=== PATIENT | female | born 1950 | race Two or more races ===

== ENCOUNTER 2017-08-13 09:58 | Outpatient (CLI) | payer OTHER ==
[~2017-08-13 09:58] MED LIST: KETO10TA2 PO; LEVOXYL25 MCG; ORPH100T PO; PROTONIX40 MG PO; SIMVASTATIN5 MG; TIZANIDINE HCL2 MG PO; VASOTEC5 MG
== END 2017-08-13 10:14 | disposition home or self-care (01) ==
LOC: LAB 09:58
DX: D50.0 Iron deficiency anemia secondary to blood loss (chronic) (principal); E11.65 Type 2 diabetes mellitus with hyperglycemia; Z12.11 Encounter for screening for malignant neoplasm of colon; K62.5 Hemorrhage of anus and rectum; R10.9 Unspecified abdominal pain; E78.00 Pure hypercholesterolemia, unspecified; E03.0 Congenital hypothyroidism with diffuse goiter; N39.0 Urinary tract infection, site not specified; E55.9 Vitamin D deficiency, unspecified; M81.0 Age-related osteoporosis without current pathological fracture; E11.29 Type 2 diabetes mellitus with other diabetic kidney complication; N18.2 Chronic kidney disease, stage 2 (mild); I10 Essential (primary) hypertension

== ENCOUNTER → 2017-11-25 | Outpatient (CLI) | payer OTHER | END | disposition home or self-care (01) | LOC: NUCLEAR 10:54 | DX: I11.9 Hypertensive heart disease without heart failure (principal); I49.1 Atrial premature depolarization ==

== ENCOUNTER → 2018-04-06 07:42 | Outpatient (CLI) | payer OTHER | END | disposition home or self-care (01) | LOC: LAB 07:42 | DX: N18.2 Chronic kidney disease, stage 2 (mild) (principal); I10 Essential (primary) hypertension; E11.21 Type 2 diabetes mellitus with diabetic nephropathy; D50.0 Iron deficiency anemia secondary to blood loss (chronic); E78.2 Mixed hyperlipidemia; E03.0 Congenital hypothyroidism with diffuse goiter; N39.0 Urinary tract infection, site not specified ==

== ENCOUNTER → 2018-04-28 09:55 | Outpatient (CLI) | payer OTHER | END | disposition home or self-care (01) | LOC: LAB 09:55 | DX: D70.8 Other neutropenia (principal); E03.8 Other specified hypothyroidism; C90.00 Multiple myeloma not having achieved remission; M32.8 Other forms of systemic lupus erythematosus; D89.89 Other specified disorders involving the immune mechanism, not elsewhere classified; M06.80 Other specified rheumatoid arthritis, unspecified site ==

== ENCOUNTER 2018-05-20 08:42 | Outpatient (CLI) | payer OTHER | END 2018-05-20 08:50 | disposition home or self-care (01) | LOC: LAB 08:42 | DX: N18.2 Chronic kidney disease, stage 2 (mild) (principal); I10 Essential (primary) hypertension; E11.21 Type 2 diabetes mellitus with diabetic nephropathy ==

== ENCOUNTER 2018-07-29 07:57 | Outpatient (CLI) | payer OTHER | END 2018-07-29 09:10 | disposition home or self-care (01) | LOC: LAB 07:57 | DX: D70.8 Other neutropenia (principal); D78.21 Postprocedural hemorrhage of the spleen following a procedure on the spleen; E06.3 Autoimmune thyroiditis ==

== ENCOUNTER 2018-08-16 09:15 | Outpatient (CLI) | payer OTHER | END 2018-08-16 09:23 | disposition home or self-care (01) | LOC: LAB 09:15 | DX: D50.0 Iron deficiency anemia secondary to blood loss (chronic) (principal); E11.69 Type 2 diabetes mellitus with other specified complication; E78.00 Pure hypercholesterolemia, unspecified; E03.8 Other specified hypothyroidism; N39.0 Urinary tract infection, site not specified; Z12.11 Encounter for screening for malignant neoplasm of colon; K62.5 Hemorrhage of anus and rectum; R10.9 Unspecified abdominal pain; E55.9 Vitamin D deficiency, unspecified; E51.8 Other manifestations of thiamine deficiency ==

== ENCOUNTER 2018-10-02 09:22 | Emergency (ER) | payer OTHER ==
[~2018-10-02] VITALS: Ht 154.9 cm; Wt 60.8 kg
[2018-10-02] MEDS ORDERED: COZAAR50 MG PO (09:49)
[2018-10-04] MEDS ORDERED: ZETIA10 MG PO (07:54)
[2018-10-04] MEDS ORDERED: MULTIPLE VITAM1 EACH PO (07:54)
== END 2018-10-02 11:28 | disposition home or self-care (01) ==
LOC: ER 09:22
DX: S82.092A Other fracture of left patella, initial encounter for closed fracture (principal); W18.09XA Striking against other object with subsequent fall, initial encounter; Y93.89 Activity, other specified; Y92.098 Other place in other non-institutional residence as the place of occurrence of the external cause; Y99.8 Other external cause status

== ENCOUNTER 2018-10-04 09:03 | Day surgery (SDC) | payer OTHER ==
[~2018-10-04 09:03] MED LIST changes: +COZAAR50 MG PO; +MULTIPLE VITAM1 EACH PO; +ZETIA10 MG PO
[2018-10-04] MEDS ORDERED: PERCOCET 5-3251 EACH PO (15:45)
[2018-10-04] MEDS ORDERED: ALEVE220 M1 PO (15:45)
[2018-10-04] MEDS ORDERED: DUI500 PO (15:45)
== END 2018-10-04 19:25 | disposition home or self-care (01) ==
LOC: CIR.AMB 09:03
DX: S80.02XA Contusion of left knee, initial encounter (principal); S76.112A Strain of left quadriceps muscle, fascia and tendon, initial encounter

== ENCOUNTER 2018-11-22 08:20 | Outpatient (CLI) | payer OTHER ==
[~2018-11-22 08:20] MED LIST changes: +ALEVE220 M1 PO; +DUI500 PO; +PERCOCET 5-3251 EACH PO
== END 2018-11-22 15:00 | disposition home or self-care (01) ==
LOC: LAB 08:20
DX: N18.2 Chronic kidney disease, stage 2 (mild) (principal); I10 Essential (primary) hypertension

== ENCOUNTER → 2018-12-15 07:58 | Outpatient (CLI) | payer OTHER | END | disposition home or self-care (01) | LOC: LAB 07:58 | DX: D50.0 Iron deficiency anemia secondary to blood loss (chronic) (principal); E11.69 Type 2 diabetes mellitus with other specified complication; E78.00 Pure hypercholesterolemia, unspecified; E03.8 Other specified hypothyroidism; N39.0 Urinary tract infection, site not specified; Z12.11 Encounter for screening for malignant neoplasm of colon; K62.5 Hemorrhage of anus and rectum; R10.84 Generalized abdominal pain; E55.9 Vitamin D deficiency, unspecified ==

== ENCOUNTER → 2018-12-27 06:38 | Outpatient (CLI) | payer OTHER | END | disposition home or self-care (01) | LOC: LAB 06:38 | DX: E06.3 Autoimmune thyroiditis (principal); D70.8 Other neutropenia ==

== ENCOUNTER 2019-01-04 08:13 | Outpatient (CLI) | payer OTHER | END 2019-01-04 08:17 | disposition home or self-care (01) | LOC: RAD 08:13 | DX: M17.12 Unilateral primary osteoarthritis, left knee (principal) ==

== ENCOUNTER 2019-02-15 11:29 | Outpatient (CLI) | payer OTHER | END 2019-02-15 11:33 | disposition home or self-care (01) | LOC: MAMO-SONO 11:29 | DX: Z12.31 Encounter for screening mammogram for malignant neoplasm of breast (principal); Z87.898 Personal history of other specified conditions; N63.10 Unspecified lump in the right breast, unspecified quadrant; N63.20 Unspecified lump in the left breast, unspecified quadrant ==

== ENCOUNTER 2019-02-27 11:56 | Outpatient (CLI) | payer OTHER | END 2019-02-27 12:05 | disposition home or self-care (01) | LOC: NUCLEAR 11:56 | DX: M81.0 Age-related osteoporosis without current pathological fracture (principal) ==

== ENCOUNTER → 2019-05-24 | Outpatient (CLI) | payer OTHER | END | disposition home or self-care (01) | LOC: RAD 13:02 | DX: M54.5 Low back pain (principal) ==

== ENCOUNTER 2019-06-20 08:22 | Outpatient (CLI) | payer OTHER | END 2019-06-20 08:28 | disposition home or self-care (01) | LOC: LAB 08:22 | DX: D70.8 Other neutropenia (principal) ==

== ENCOUNTER 2019-07-21 08:07 | Outpatient (CLI) | payer OTHER | END 2019-07-21 08:15 | disposition home or self-care (01) | LOC: LAB 08:07 | DX: D64.89 Other specified anemias (principal); I10 Essential (primary) hypertension; E11.9 Type 2 diabetes mellitus without complications; E78.00 Pure hypercholesterolemia, unspecified; N39.0 Urinary tract infection, site not specified; E03.8 Other specified hypothyroidism; Z12.31 Encounter for screening mammogram for malignant neoplasm of breast; R19.5 Other fecal abnormalities; E55.9 Vitamin D deficiency, unspecified ==

== ENCOUNTER → 2019-08-31 08:19 | Outpatient (CLI) | payer OTHER | END | disposition home or self-care (01) | LOC: LAB 08:19 | DX: M06.09 Rheumatoid arthritis without rheumatoid factor, multiple sites (principal) ==

== ENCOUNTER 2019-09-12 13:41 | Outpatient (CLI) | payer OTHER | END 2019-09-12 14:04 | disposition home or self-care (01) | LOC: LAB 13:41 | DX: I10 Essential (primary) hypertension (principal) ==

== ENCOUNTER 2019-09-26 07:47 | Outpatient (CLI) | payer OTHER | END 2019-09-26 07:52 | disposition home or self-care (01) | LOC: LAB 07:47 | DX: D64.89 Other specified anemias (principal); I10 Essential (primary) hypertension; E11.9 Type 2 diabetes mellitus without complications; E78.00 Pure hypercholesterolemia, unspecified; N39.0 Urinary tract infection, site not specified; E03.8 Other specified hypothyroidism; E55.9 Vitamin D deficiency, unspecified; Z12.11 Encounter for screening for malignant neoplasm of colon; R19.5 Other fecal abnormalities ==

== ENCOUNTER 2020-01-16 09:42 | Outpatient (CLI) | payer OTHER | END 2020-01-16 09:47 | disposition home or self-care (01) | LOC: LAB 09:42 | PROVIDERS: ATTEND Internal Medicine Hematology & Oncology | DX: N18.1 Chronic kidney disease, stage 1 (principal); R80.8 Other proteinuria; D70.8 Other neutropenia ==

== ENCOUNTER 2020-01-16 10:32 | Outpatient (CLI) | payer OTHER | END 2020-01-16 10:34 | disposition home or self-care (01) | LOC: RAD 10:32 | PROVIDERS: ATTEND Internal Medicine | DX: S97.02XA Crushing injury of left ankle, initial encounter (principal) ==

== ENCOUNTER 2020-01-19 10:39 | Outpatient (CLI) | payer OTHER | END 2020-01-19 11:03 | disposition home or self-care (01) | LOC: NUCLEAR 10:39 | PROVIDERS: ATTEND Internal Medicine | DX: S97.02XA Crushing injury of left ankle, initial encounter (principal); I87.2 Venous insufficiency (chronic) (peripheral); I73.9 Peripheral vascular disease, unspecified ==

== ENCOUNTER 2020-01-25 12:09 | Outpatient (CLI) | payer OTHER | END 2020-01-25 12:13 | disposition home or self-care (01) | LOC: RAD 12:09 | PROVIDERS: ATTEND Internal Medicine | DX: M54.5 Low back pain (principal) ==

== ENCOUNTER 2020-02-19 10:17 | Outpatient (CLI) | payer OTHER | END 2020-02-19 10:20 | disposition home or self-care (01) | LOC: MAMO-SONO 10:17 | PROVIDERS: ATTEND Internal Medicine | DX: Z12.31 Encounter for screening mammogram for malignant neoplasm of breast (principal); N64.89 Other specified disorders of breast ==

== ENCOUNTER 2020-05-02 08:52 | Outpatient (CLI) | payer OTHER | END 2020-05-02 08:57 | disposition home or self-care (01) | LOC: LAB 08:52 | PROVIDERS: ATTEND Internal Medicine | DX: D64.89 Other specified anemias (principal); I10 Essential (primary) hypertension; E11.9 Type 2 diabetes mellitus without complications; E78.00 Pure hypercholesterolemia, unspecified; N39.0 Urinary tract infection, site not specified; E03.8 Other specified hypothyroidism ==

== ENCOUNTER → 2020-07-26 09:23 | Outpatient (CLI) | payer OTHER | END | disposition home or self-care (01) | LOC: LAB 09:23 | PROVIDERS: ATTEND Internal Medicine | DX: E03.8 Other specified hypothyroidism (principal); E04.2 Nontoxic multinodular goiter; E11.69 Type 2 diabetes mellitus with other specified complication; E55.9 Vitamin D deficiency, unspecified; E78.2 Mixed hyperlipidemia; I70.0 Atherosclerosis of aorta; I49.1 Atrial premature depolarization; I10 Essential (primary) hypertension ==

== ENCOUNTER 2020-08-22 08:56 | Outpatient (CLI) | payer OTHER | END 2020-08-22 09:01 | disposition home or self-care (01) | LOC: LAB 08:56 | PROVIDERS: ATTEND Internal Medicine | DX: D70.8 Other neutropenia (principal) ==

== ENCOUNTER 2020-10-14 15:43 | Emergency (ER) | payer OTHER ==
[~2020-10-14] VITALS: Ht 154.9 cm; Wt 60.8 kg
[2020-10-14] MEDS ORDERED: OMEPRAZOLE MAGN20 MG (17:15)
== END 2020-10-14 19:01 | disposition home or self-care (01) ==
LOC: ER 15:43
DX: S00.83XA Contusion of other part of head, initial encounter (principal); S60.222A Contusion of left hand, initial encounter; S20.212A Contusion of left front wall of thorax, initial encounter; W18.09XA Striking against other object with subsequent fall, initial encounter; Y93.01 Activity, walking, marching and hiking; Y92.480 Sidewalk as the place of occurrence of the external cause; Y99.8 Other external cause status

== ENCOUNTER 2020-10-16 08:09 | Outpatient (CLI) | payer OTHER ==
[~2020-10-16 08:09] MED LIST changes: +OMEPRAZOLE MAGN20 MG
== END 2020-10-16 08:11 | disposition home or self-care (01) ==
LOC: LAB 08:09
PROVIDERS: ATTEND Internal Medicine
DX: D64.89 Other specified anemias (principal); I10 Essential (primary) hypertension; E11.9 Type 2 diabetes mellitus without complications; N39.0 Urinary tract infection, site not specified; E03.8 Other specified hypothyroidism; E78.00 Pure hypercholesterolemia, unspecified; E11.69 Type 2 diabetes mellitus with other specified complication

== ENCOUNTER 2020-10-21 15:00 | Outpatient (CLI) | payer OTHER | END 2020-10-21 15:05 | disposition home or self-care (01) | LOC: RAD 15:00 | PROVIDERS: ATTEND Physical Medicine & Rehabilitation | DX: M79.642 Pain in left hand (principal) ==

== ENCOUNTER → 2020-11-01 14:45 | Outpatient (CLI) | payer OTHER | END | disposition home or self-care (01) | LOC: LAB 14:45 | PROVIDERS: ATTEND Physical Medicine & Rehabilitation | DX: M06.8A Other specified rheumatoid arthritis, other specified site (principal) ==

== ENCOUNTER 2021-01-09 07:53 | Outpatient (CLI) | payer OTHER | END 2021-01-09 07:54 | disposition home or self-care (01) | LOC: LAB 07:53 | PROVIDERS: ATTEND Internal Medicine | DX: N39.0 Urinary tract infection, site not specified (principal); E03.8 Other specified hypothyroidism; E78.00 Pure hypercholesterolemia, unspecified; E11.69 Type 2 diabetes mellitus with other specified complication; D50.0 Iron deficiency anemia secondary to blood loss (chronic) ==

== ENCOUNTER 2021-03-18 07:51 | Outpatient (CLI) | payer OTHER | END 2021-03-18 07:53 | disposition home or self-care (01) | LOC: LAB 07:51 | PROVIDERS: ATTEND Internal Medicine Nephrology | DX: I10 Essential (primary) hypertension (principal) ==

== ENCOUNTER → 2021-04-16 | Outpatient (CLI) | payer OTHER | END | disposition home or self-care (01) | LOC: LAB 08:01 | PROVIDERS: ATTEND Internal Medicine | DX: E03.8 Other specified hypothyroidism (principal); D72.818 Other decreased white blood cell count; E04.2 Nontoxic multinodular goiter; E11.69 Type 2 diabetes mellitus with other specified complication; E78.2 Mixed hyperlipidemia; I11.9 Hypertensive heart disease without heart failure; I70.0 Atherosclerosis of aorta; I87.2 Venous insufficiency (chronic) (peripheral); K21.9 Gastro-esophageal reflux disease without esophagitis; K57.20 Diverticulitis of large intestine with perforation and abscess without bleeding; M54.5 Low back pain ==

== ENCOUNTER 2021-04-30 12:21 | Outpatient (CLI) | payer OTHER | END 2021-04-30 12:25 | disposition home or self-care (01) | LOC: NUCLEAR 12:21 | PROVIDERS: ATTEND Internal Medicine | DX: M81.0 Age-related osteoporosis without current pathological fracture (principal) ==

== ENCOUNTER 2021-08-11 07:50 | Outpatient (CLI) | payer OTHER | END 2021-08-11 08:00 | disposition home or self-care (01) | LOC: LAB 07:50 | PROVIDERS: ATTEND Internal Medicine | DX: E03.8 Other specified hypothyroidism (principal); E11.69 Type 2 diabetes mellitus with other specified complication; E78.00 Pure hypercholesterolemia, unspecified; E55.9 Vitamin D deficiency, unspecified; D50.0 Iron deficiency anemia secondary to blood loss (chronic); N39.0 Urinary tract infection, site not specified ==

== ENCOUNTER 2021-11-18 08:00 | Outpatient (CLI) | payer OTHER | END 2021-11-18 08:30 | disposition home or self-care (01) | LOC: PPH VACUNA 08:00 | PROVIDERS: ATTEND Emergency Medicine Pediatric Emergency Medicine | DX: Z23 Encounter for immunization (principal); Z71.85 Encounter for immunization safety counseling ==

== ENCOUNTER 2021-11-25 09:23 | Outpatient (CLI) | payer OTHER | END 2021-11-25 09:32 | disposition home or self-care (01) | LOC: MAMO-SONO 09:23 | PROVIDERS: ATTEND Internal Medicine | DX: Z12.31 Encounter for screening mammogram for malignant neoplasm of breast (principal); N63.0 Unspecified lump in unspecified breast ==

== ENCOUNTER 2021-11-26 09:16 | Outpatient (CLI) | payer OTHER | END 2021-11-26 09:18 | disposition home or self-care (01) | LOC: NUCLEAR 09:16 | PROVIDERS: ATTEND Internal Medicine | DX: I65.23 Occlusion and stenosis of bilateral carotid arteries (principal) ==

== ENCOUNTER 2022-08-27 15:29 | Outpatient (CLI) | payer OTHER | END 2022-08-27 15:34 | disposition home or self-care (01) | LOC: RAD 15:29 | PROVIDERS: ATTEND Physical Medicine & Rehabilitation | DX: M79.644 Pain in right finger(s) (principal); M65.4 Radial styloid tenosynovitis [de Quervain] ==